=== PATIENT | female | born 1960 | race Caucasian/White ===

== ENCOUNTER 2016-07-27 07:02 | Emergency (ER) | END 2016-07-27 10:00 | disposition home or self-care (01) | DX: N39.0 Urinary tract infection, site not specified (principal); R10.11 Right upper quadrant pain | CPT/HCPCS: 36415; 76705; 76830; 76856; 80053; 81001; 81003; 83690; 84484; 85025; 93005; 96372; J0696; J7030; Z7502; Z7610 ==